=== PATIENT | male | born 1960 | race Caucasian/White ===

== ENCOUNTER 2022-12-12 11:27 | Day surgery (SDC) | payer OTHER, SELFPAY ==
[2022-12-12] VITALS (7 sets, daily range): BP systolic 108–151; BP diastolic 60–76; PULSE 58–71; RESP 10–18; TEMP 36.3–36.6; O2SAT 94–100; BMI 24.2
--- NOTE | 2022-12-12 | PATH_ITS ---
[facility] Accession Number: [id number] No. of containers..01 Tissue . 01 Material submitted: . small bowel - SMALL BOWEL BIOPSY . 01 Clinical history: . RULE OUT CELIAC DISEASE . 01 Diagnosis: Small Bowel, Biopsy: Small bowel mucosa with mildly increased intraepithelial lymphocytes, with preserved villous architecture; see comment. [facility] 12/17/2022 1015 Local . 01 Comment: Prominent intraepithelial lymphocytes are a nonspecific finding that may be seen in a variety of conditions including early onset or treated celiac sprue. If celiac sprue is suspected clinically, correlation with serologic studies is recommended. . 01 Electronically signed: . Alicia Cochran MD, Pathologist NPI- [id number] . 01 Gross description: . SMALL BOWEL BIOPSY: Received in formalin are 2 fragment(s) of hammond, soft tissue measuring 0.2 x 0.2 x 0.2 cm to 0.2 x 0.2 x 0.1 cm submitted entirely in 1 cassette(s) /[facility] 12/13/2022 1525 Local . 01 Pathologist provided ICD-10: Z86.010, D50.9, K31.89 . 01 CPT . 484102 Specimen Comment: A courtesy copy of this report has been sent to [phone] Performed at: 01 [facility] [address] [place] [address] [address], [place], [place] [id number] MD Xu Rivera MD Phone: [phone]
[2022-12-12] MEDS: LACTATED RINGERS 1,000 ML 42 ML IV (12:00)
--- NOTE | 2022-12-12 12:16 | PM.HP.1 ---
History of Present Illness History of Present Illness Date Patient Seen: 12/12/22 Chief complaint: SDC Narrative: History of mild iron deficiency anemia PFSH Social History household members: spouse Smoking Status: Former smoker alcohol intake: current Meds Home Medications and Allergies Home Medications Medication Instructions Recorded Confirmed Type tamsulosin 0.4 mg capsule 0.4 mg PO DAILY 12/12/22 12/12/22 History Allergies Allergy/AdvReac Type Severity Reaction Status Date / Time prochlorperazine Allergy agitation Verified 12/12/22 11:44 [From Compazine] Exam Vital Signs (past 8 hours): - 12/12/22 11:49 Temperature 97.4 F L Pulse Rate 71 Respiratory Rate 18 Blood Pressure 151/71 H Pulse Oximetry 99 Oxygen Delivery Method Room Air Oxygen Delivery Method Room Air Narrative Exam Narrative: Oropharynx free of lesions Chest clear to auscultation percussion Cardiac exam reveals no S3 or murmur Assessment & Plan Assessment & Plan narrative: Mild iron deficiency anemia need for GI evaluation. EGD and colonoscopy to be performed with duodenal biopsies. Risks, benefits, alternatives have been explained.
--- NOTE | 2022-12-12 12:17 | PM.OP.EC ---
Operative Date/Time/Diagnoses Date of procedure: 12/12/22 Pre-op diagnosis: See indication and findings Procedure & Clinicians Study performed: EGD and colonoscopy Indications: Mild iron deficiency anemia Surgeon: Sami Aguilera Procedure Notes Procedure in detail: After informed consent was obtained the patient was placed in left lateral decubitus position. The video upper scope placed into the oropharynx and with the patient's help swallowed into the esophagus. The esophagus stomach and duodenum were carefully examined. On withdrawal, retroflexed view the GE junction was performed. The scope was removed. The patient tolerated procedure well. The patient was turned in the colonoscope substituted. The scope was passed the cecum without difficulty. On slow withdrawal mucosa was carefully examined. The scope was removed. The patient tolerated procedure well. Blood loss none Complications none Sedation mac Findings EGD 1. Normal esophagus 2. Scattered patchy erythema in the stomach otherwise normal 3. Normal duodenal bulb and sweep biopsies taken to rule out celiac Colonoscopy 1. Normal colonoscopy to cecum Will follow up with biopsy results but Mr. Rayo should follow-up through Dr. Salty santana office did discuss with her they want to proceed with pill camera.
== END 2022-12-12 13:48 | disposition home or self-care (01) ==
PROVIDERS: PCP Internal Medicine; Referring Provider Internal Medicine Gastroenterology; Visit Provider Internal Medicine Gastroenterology
PROC: 0DJ08ZZ Inspection of Upper Intestinal Tract, Via Natural or Artificial Opening Endoscopic (ICD-10-PCS; CPT 43235; principal; 2022-12-12 12:30)
PROC: 0DJD8ZZ Inspection of Lower Intestinal Tract, Via Natural or Artificial Opening Endoscopic (ICD-10-PCS; CPT 45378; 2022-12-12 12:30)
DX: D50.9 Iron deficiency anemia, unspecified (principal)
CPT/HCPCS: 45378; 43239; J2704